=== PATIENT | female | born 2000 | race Caucasian/White ===

== ENCOUNTER → 2024-06-04 10:39 | Outpatient (BNVA) | payer SELFPAY | PROVIDERS: Visit Provider Registered Nurse ==

== ENCOUNTER 2024-09-21 01:31 | Emergency (ER) | payer OTHER, SELFPAY ==
--- NOTE | ~2024-09-21 | US_ITS ---
EXAMINATION: US ABDOMEN LIMITED CLINICAL INFORMATION: Right upper quadrant pain. Question cholecystitis. COMPARISON: None available. TECHNIQUE: Real-time imaging of the right upper quadrant abdominal viscera. FINDINGS: PANCREAS: Visualized pancreatic head and body are normal in appearance with the remainder the pancreas is good visualization by overlying bowel gas. Visualized proximal and middle segments of the inferior vena cava are normal in appearance. LIVER: The liver is normal in appearance. GALLBLADDER: The gallbladder demonstrates mild physiologic distention. No cholelithiasis identified. No gallbladder wall thickening. No pericholecystic fluid collections. The gallbladder wall measures 2 mm in width, within normal limits of size. Right upper quadrant tenderness is documented by the polysomnographic technologist during targeted sonography of the gallbladder. COMMON BILE DUCT: Normal in caliber measuring 0.2 cm in diameter. RIGHT KIDNEY: Normal. No hydronephrosis. No renal calculi or focal parenchymal lesions. The kidney measures 10.8 cm in maximum dimension. FREE FLUID: None. US/US abdomen limited IMPRESSION: Normal right upper quadrant abdominal ultrasound. No cholelithiasis. No gallbladder wall inflammatory changes or biliary duct dilatation identified. Of note, the polysomnographic technologist documented right upper quadrant pain during targeted sonography and compression in the region of the gallbladder. Electronically signed by: Main Castano MD 09/21/2024 05:32 AM EST
[2024-09-21 01:55] VITALS: BP 123/79; PULSE 89; RESP 18; TEMP 36.9; O2SAT 97; BMI 32.1
--- NOTE | 2024-09-21 02:10 | MHC.EDTECH ---
Patient brought into triage area,labs,and urine obtained and sent to lab
--- NOTE | 2024-09-21 02:23 | MHC.EDTECH ---
Patient brought into triage area,sars/flu/rsv,and strep swabs obtained and sent to lab.
[2024-09-21 02:26] LABS: MANUAL DIFF FLAG NO
[2024-09-21 02:27] LABS: Basophils Percent Auto 0.3 % (0-2); Eosinophils Absolute Auto 0.2 X10*3/uL (0.0-0.4); Eosinophils Percent Auto 1.7 % (0-4); Hematocrit 40.6 % (37.0-47.0); Hemoglobin 13.9 g/dl (12.0-16.0); Imm Gran Abs Auto 0.02 X10*3/uL (0.00-0.03); Imm Gran Pct Auto 0.2 % (0.0-0.4); Lymphocytes Absolute Auto 4.4 X10*3/uL (1.2-4.9); Lymphocytes Percent Auto 36.8 % (20-40); Mean Corpuscular HGB Conc 34.2 g/dl (31.0-35.0); Mean Corpuscular Volume 87.5 fL (80.0-98.0); Mean Platelet Volume 9.9 fL (9.4-12.3); Monocytes Percent Auto 8.2 % (2-11); Neutrophils Absolute Auto 6.3 x10*3/uL (2.0-8.3); Neutrophils Percent Auto 52.8 % (45-73); Platelet Count 355 X10*3/uL (160-400); Red Blood Count 4.64 X10*6/uL (4.20-5.50); Red Cell Distribution Width 11.9 % (11.0-16.0); White Blood Count 11.9 X10*3/uL (4.8-10.8)
[2024-09-21 02:29] LABS: Appearance Urine Clear; Color Urine Yellow; Glucose Urine UA Negative (Negative); Leukocyte Esterase Urine Negative (Negative); Nitrite Urine Negative (Negative); Urine Blood Negative (Negative); Urine Ketones Trace mg/dL (Negative); Urine Protein Negative (Neg-Trace)
[2024-09-21 02:30] LABS: UPreg QC Valid YES; Urine Pregnancy NEGATIVE (NEGATIVE)
[2024-09-21 02:51] LABS: Bacteria Urine Trace (None Seen); Hyaline Casts Urine 0-2 /LPF (0-2); RBC Urine 0-2 /HPF (0-2); Squamous Epithelial Cell Urine 0-2 /HPF (0-2); WBC Urine 0-5 /HPF (0-5)
[2024-09-21 02:52] LABS: Alanine Aminotransferase 22 U/L (0-31); Albumin Level 4.2 g/dL (3.5-5.0); Alkaline Phosphatase 93 U/L (39-117); Anion Gap 16 (12-20); Aspartate Amino Transferase 27 U/L (5-31); Bilirubin Direct 0.2 mg/dL (0.0-0.5); Bilirubin Total 0.4 mg/dL (0.0-1.0); Blood Urea Nitrogen 12 mg/dL (9-16); Calcium 10.2 mg/dL (8.4-10.2); Carbon Dioxide 26 mmol/L (22-29); Chloride 103 mmol/L (96-108); Creatinine Clr Calc Pharmacy 124.1; Estimated Glomerular Filt Rate > 60; Glucose Random 104 mg/dL (60-115); Lipase 21 U/L (8-78); Potassium 3.9 mmol/L (3.3-5.1); Sodium 141 mmol/L (135-145); Total Protein 7.6 g/dL (6.5-8.0)
--- NOTE | 2024-09-21 03:41 | ED_ITS ---
HPI - Abdominal Pain General Chief Complaint: Abdominal Pain Stated Complaint: abd pain Time Seen by Provider: 09/21/24 03:40 Source: patient Mode of arrival: ambulatory Limitations: no limitations History of Present Illness ED Provider: chata HPI narrative: Patient complaining of pain in right upper quadrant for last 5 days without any nausea vomiting or diarrhea pain gets worse when she eats something no fever no chills no urinary symptom no history of gallstones or kidney stone Related Data Previous Rx's ?Medication ?Instructions ?Recorded ibuprofen 600 mg tablet 600 mg PO Q6H PRN fever or pain 09/21/24 #30 tabs Allergies Allergy/AdvReac Type Severity Reaction Status Date / Time Penicillins Allergy Rash Verified 09/21/24 02:00 Review of Systems Review of Systems Yes all other systems are reviewed and are negative [facility] Social History Social History Smoked in Last 30 Days: No Use of substances other than those prescribed or required for medical reasons: No Advance Directives: No Advance Directives Information Provided: No Physical Exam ED Vital Signs: Vital Signs - 24 hr 09/21/24 01:55 09/21/24 05:54 09/21/24 06:04 Temperature 98.5 F 97.9 F 97.9 F Pulse Rate 89 81 81 Respiratory Rate 18 20 20 Blood Pressure 123/79 119/61 119/61 Pulse Oximetry 97 99 99 Oxygen Delivery Method Room Air Room Air Room Air BMI result Body Mass Index 32.1 Appearance: Alert. Oriented X3. No acute distress. Eyes: No pallor or icterus ENT: Pharynx normal. Oral Mucosa moist Neck: Normal inspection. Neck supple. CVS: Normal heart rate and rhythm. Pulses normal. Respiratory: No respiratory distress. Equal air entry bilateral, no wheezing/rales/rhonchi Abdomen: Soft and tender right upper quadrant no guarding or rebound tenderness Bowel sounds are present, no mass palpable, no CVA tenderness Skin: Skin warm and dry. Normal skin color. Normal skin turgor. Neuro: Oriented X 3. Medical Decision Making Medical Decision Making [facility] Narrative: Patient nonspecific right upper quadrant pain urine ultrasound liver functions normal patient is able to eat without any significant tenderness etiology not clear will discharge patient home advised to follow with PCP for further evaluation Differential Diagnosis Differential Diagnoses: The differential diagnosis associated with the presentation includes UTI/pyelonephritis/cholecystitis Lab Data [facility] Lab Attestation statement: I reviewed the patient's lab results. 09/21/24 02:09 09/21/24 02:09 Labs: Lab Results 09/21/24 Range/Units 02:09 WBC 11.9 H (4.8-10.8) X10*3/uL RBC 4.64 (4.20-5.50) X10*6/uL Hgb 13.9 (12.0-16.0) g/dl Hct 40.6 (37.0-47.0) % MCV 87.5 (80.0-98.0) fL MCH 30.0 (27.0-33.0) pg MCHC 34.2 (31.0-35.0) g/dl RDW 11.9 (11.0-16.0) % Plt Count 355 (160-400) X10*3/uL MPV 9.9 (9.4-12.3) fL Immature Gran % (Auto) 0.2 (0.0-0.4) % Neut % (Auto) 52.8 (45-73) % Lymph % (Auto) 36.8 (20-40) % [place] % (Auto) 8.2 (2-11) % Eos % (Auto) 1.7 (0-4) % Baso % (Auto) 0.3 (0-2) % Lymph # (Auto) 4.4 (1.2-4.9) X10*3/uL [place] # (Auto) 1.0 (0.1-1.2) X10*3/uL Eos # (Auto) 0.2 (0.0-0.4) X10*3/uL Baso # (Auto) 0.0 (0.0-0.2) X10*3/uL Abs Immat Gran (auto) 0.02 (0.00-0.03) X10*3/uL Absolute Neuts (auto) 6.3 (2.0-8.3) x10*3/uL Absolute Nucleated RBC 0.000 (0.0-0.012) X10*3/uL Nucleated RBC % (auto) 0.0 (0.0-0.2) /100WBC Sodium 141 (135-145) mmol/L Potassium 3.9 (3.3-5.1) mmol/L Chloride 103 (96-108) mmol/L Carbon Dioxide 26 (22-29) mmol/L Anion Gap 16 (12-20) BUN 12 (9-16) mg/dL Creatinine 0.71 (0.5-1.4) mg/dL Estim Creat Clear Calc 124.1 Estimated GFR > 60 Random Glucose 104 (60-115) mg/dL Calcium 10.2 (8.4-10.2) mg/dL Total Bilirubin 0.4 (0.0-1.0) mg/dL Direct Bilirubin 0.2 (0.0-0.5) mg/dL AST 27 (5-31) U/L ALT 22 (0-31) U/L Alkaline Phosphatase 93 (39-117) U/L Total Protein 7.6 (6.5-8.0) g/dL Albumin 4.2 (3.5-5.0) g/dL Amylase 41 (28-100) U/L Lipase 21 (8-78) U/L Urine Color Yellow Urine Appearance Clear Urine pH 7.0 (5.0-9.0) Ur Specific Johnson 1.010 (1.005-1.025) Urine Protein Negative (Neg-Trace) mg/dL Urine Glucose (UA) Negative (Negative) mg/dL Urine Ketones Trace (Negative) mg/dL Urine Blood Negative (Negative) Urine Nitrite Negative (Negative) Ur Leukocyte Esterase Negative (Negative) Urine RBC 0-2 (0-2) /HPF Urine WBC 0-5 (0-5) /HPF Ur Squamous Epith Cells 0-2 (0-2) /HPF Urine Bacteria Trace (None Seen) Hyaline Casts 0-2 (0-2) /LPF Urine Test NEGATIVE (NEGATIVE) Radiology Impression Discussion of test interpretation with radiology: I have reviewed the radiologist's reading. Radiologist Impression: US/US abdomen limited IMPRESSION: Normal right upper quadrant abdominal ultrasound. No cholelithiasis. No gallbladder wall inflammatory changes or biliary duct dilatation identified. Of note, the cat scan technologist documented right upper quadrant pain during targeted sonography and compression in the region of the gallbladder. Electronically signed by: Main Castano MD 09/21/2024 05:32 AM [facility] Dictated By: Main Castano MD Signed By: <Electronically signed by Main Castano MD in OV> Medications Administered Discontinued Medications Generic Name Dose Route Start Last Admin Trade Name Freq PRN Reason Stop Dose Admin Ibuprofen 600 mg 09/21/24 05:54 09/21/24 06:02 Ibuprofen 600 Mg Tablet PO 09/21/24 05:55 600 mg ONCE ONE Administration Discharge Plan Discharge Clinical Impression: Abdominal pain Patient Disposition: Home, Self-Care Instructions: Abdominal Pain (ED) Additional Instructions: Cause of your right upper abdominal pain is not clear likely muscular/pleuritic Your ultrasound of the abdomen is negative for gallstones or kidney stones Take ibuprofen for pain Prescriptions: New ibuprofen 600 mg tablet 600 mg PO Q6H PRN (Reason: fever or pain) Qty: 30 0RF Interventions: ED Discharge Assessment Last Done: 09/21/24 06:04 Discharge Date/Time: 09/21/24 06:05 Print Language: [place]
[2024-09-21 03:43] LABS: Amylase 41 U/L (28-100)
[2024-09-21 05:54] VITALS: BP 119/61; PULSE 81; RESP 20; TEMP 36.6; O2SAT 99
[2024-09-21] MEDS: Ibuprofen 600 MG TABLET PO (06:02)
[2024-09-21 06:04] VITALS: BP 119/61; PULSE 81; RESP 20; TEMP 36.6; O2SAT 99
--- OUTSIDE RECORDS SUMMARY | 2024-09-24 13:14 | XMS_ITS | Continuity of Care Document ---
Author Organization [facility] [address] Address [address] [place] [address]- Care Team Providers Care Event Specialist Product Demonstrator Name Role Phone Zoraida Nance MD Primary Care Physician Encounter [facility] Date(s): 02/03/23 - 03/05/23 [facility] [address] [place] [address]- Allergies, Adverse Reactions, Alerts Substance Reaction Severity Status penicillin Active Medications Albuterol 0 Refills, Maintenance, 08/01/15 16:26:48 Start Date: 08/01/15 Status: Ordered Epiduo 1 applicator, Topically, Daily, 0 Refills, Maintenance, 08/01/15 16:27:10 Start Date: 08/01/15 Status: Ordered prochlorperazine 10 mg oral tablet See Instructions, 1 tablet By Mouth 3 times a day for 7 days, then as needed for vertigo, # 30 tablet, 0 Refills, Maintenance, 08/16/15 13:25:11, 1 tablet By Mouth 3 times a day for 7 days, then as needed for vertigo Start Date: 08/16/15 Status: Ordered Problem List Condition Confirmation Course Effective Dates Status Health St atus Informant Anxiety Confirmed Active Inflammatory acne Confirmed Active Social History Social History Type Response Smoking Status Never smoker; Tobacc o user in household: No entered on: 01/02/16 Sex Patient Care team information Care Team Personnel Name: Zoraida Nance MD Position: S General Pediatrics MD Member Role: PCP Address: Address: [address] [place] [address] [facility] [place] [address]- Care Team Related Persons Name: RAHUL LERMA Address: home [address] [place] [address] Name: GILDA MCCARTY Address: [address] [place] [address] Name: CARLY JUNG Address: [address] [address] Name: PORSHA JUNG Address: [address] [address]
--- OUTSIDE RECORDS SUMMARY | 2024-09-24 13:14 | XMS_ITS | Continuity of Care Document ---
Author Organization [facility] [address] Address [address] [place] [address]- Care Team Providers Care Mine Superintendent Name Role Phone Elizabeth Hraper NP Primary Care Physician Encounter [facility] Date(s): 07/28/23 - 08/27/[address] [address] Allergies, Adverse Reactions, Alerts Substance Reaction Severity [...] Anxiety Confirmed Active Inflammatory acne Confirmed Active Iron deficiency anemia Confirmed Active Vasovagal syncope Confirmed Active Social History Social History Type Response Smoking Status Never (less than 100 in lifetime) entered on: 04/14/23 Sex Patient Care team information Care Team Personnel Name: Elizabeth Harper NP Position: S PCO Associate Professional Member Role: PCP Address: Address: [address] [place] [id number] Care Team Related Persons Name: RAHUL LERMA Address: home [address] [place] [address] Name: GILDA MCCARTY Address: [address] [place] [address] Name: CARLY JUNG Address: [address] [address] Name: PORSHA JUNG Address: [place] [address]
--- OUTSIDE RECORDS SUMMARY | 2024-09-24 13:14 | XMS_ITS | Continuity of Care Document ---
Author Organization [facility] Primary [facility] [address] Address [address] [place] [address]- Care Team Providers Care Body Engineer Name Role Phone Elizabeth Harper NP Primary Care Physician Encounter [facility] Date(s): 07/17/23 - 08/16/[address] [address] Allergies, Adverse Reactions, Alerts Substance Reaction Severity [...] Associate Professional Member Role: PCP Address: Address: [address] [place] [address]- Care Team Related Persons Name: RAHUL LERMA Address: home [address] [place] [address] Name: GILDA MCCARTY Address: [address] [place] [address] Name: CARLY JUNG Address: [address] [address] Name: PORSHA JUNG Address: [place] [address]
--- OUTSIDE RECORDS SUMMARY | 2024-09-24 13:14 | XMS_ITS | Continuity of Care Document ---
Author Organization [facility] Primary [facility] [address] Address [address] [place] [address]- Care Team Providers Care Double Reamer Operator Name Role Phone Elizabeth Harper NP Primary Care Physician Encounter [facility] Date(s): 07/22/23 - 08/21/[address] [address] Allergies, Adverse Reactions, Alerts Substance Reaction [...] Associate Professional Member Role: PCP Address: Address: [address] [place] [address]- Care Team Related Persons Name: RAHUL LERMA Address: home [address] [place] [address] Name: GILDA MCCARTY Address: [address] [place] [address] Name: CARLY JUNG Address: [address] [address] Name: PORSHA JUNG Address: [place] [address]
== END 2024-09-21 06:05 | disposition home or self-care (01) ==
PROVIDERS: Emergency Provider Internal Medicine; PCP Family Medicine
DX: R10.11 Right upper quadrant pain (principal)
CPT/HCPCS: 36415; 76705; 80053; 81001; 81025; 82150; 82248; 83690; 85025; 99284